=== PATIENT | male | born 1990 | race Caucasian/White ===

== ENCOUNTER 2018-03-27 08:04 | Emergency (ER) | payer OTHER ==
[2018-03-27 08:09] VITALS: BP 138/73
--- NOTE | 2018-03-27 08:35 | EDPHY ---
H & P Time Seen by Provider: 03/27/18 08:17 HPI/ROS: HPI Dog bite to left hand. 27-year-old male by private vehicle. This patient [place]. A dog had run away from its anatomical embalmer. The patient retrieve the dog and while caring the dog back to its anatomical embalmer of the dog bit him on the radial aspect of the left hand. The dog had tags. The dog was given back to the anatomical embalmer. The patient came to the emergency department for evaluation of the dog bite wound. The patient stead the that the dog was acting otherwise appropriate. No excessive drooling. The dog appear to be healthy. He did not have the opportunity to ask the anatomical embalmer about vaccination status. The patient is right- hand dominant. The patient reports that he has had a tetanus shot within the last 10 years. ROS: Constitutional: No fever, no chills. No weakness. Musculoskeletal: As above. Skin: No rashes. As above. Neurological: No focal weakness or altered sensation. Past medical history: Hypertension, appendectomy, broken right arm. Social history: Nonsmoker. No alcohol. Here by himself. Physical Exam: General Appearance: Alert, no distress. This patient is responding to questions appropriately and in full sentences. This patient appears well- hydrated and well-nourished. Eyes: Pupils equal and round no pallor or injection. No lid edema, erythema or injection. Left hand exam: Significant for 3 small, less than 2 mm, partial-thickness puncture wounds involving the radial aspect of the 2nd digit mid proximal phalanx and then just proximal to the 2nd MCP joint with another 1 being just proximal to that on the radial aspect of the hand. Neurological: Motor sensory function is grossly intact. Cranial nerves are normal. Gait is normal. Skin: Warm and dry, no rashes. Musculoskeletal: Neck is supple and nontender. Extremities are symmetrical. All joints range without pain or impingement. Psychiatric: No agitation. No depression. Database: EKG: Imaging: Procedures: Emergency department course: Triage vital signs reviewed and are unremarkable. The patient's wounds are fairly superficial, however he is very concerned about infection. He has no allergies to penicillin, he will be placed on Augmentin, 875 mg twice daily for 5 days. He was given his 1st dose in the emergency department. I feel that rabies prophylaxis is not required. This dog had tags, appeared otherwise healthy and had a responsible anatomical embalmer. The patient feels comfortable going home. I do not feel that x-rays are required. These wounds are superficial and retained foreign body is unlikely. The patient declines x-rays regardless. Follow-up and return to emergency department precautions reviewed with him. All of his questions were answered. He was discharged from the emergency department in good condition. Differential Diagnosis: The differential diagnosis on this patient includes but is not limited to dog bite wound to left hand. Retained foreign body, need for rabies prophylaxis, fracture, bony injury, significant neurovascular injury unlikely. This represents a partial list of diagnoses considered. These considerations are based on history, physical exam, past history, reassessment and diagnostic testing. Smoking Status: Never smoked Constitutional: Initial Vital Signs Temperature (C) 36.7 C 03/27/18 08:07 Heart Rate 60 03/27/18 08:07 Respiratory Rate 16 03/27/18 08:07 Blood Pressure 138/73 H 03/27/18 08:07 O2 Sat (%) 98 03/27/18 08:07 O2 Delivery Mode Room Air Allergies/Adverse Reactions: No Known Allergies Allergy (Unverified 03/27/18 08:07) Home Medications: Medication Instructions Recorded Amoxicillin/Clavulanate Pot 875 mg PO BID 5 Days tab 03/27/18 [Augmentin 875 mg tab] Departure - Departure Disposition: Home, Routine, Self-Care Clinical Impression: Dog bite of left hand Condition: Good Instructions: Animal Bite (ED) Additional Instructions: Read and follow provided instructions. Follow-up with your primary care physician in 2 days for re-evaluation and wound check. Take antibiotic as prescribed through entire course of treatment. Ibuprofen dosin mg every 6 hours with meals for the next 3 days only. Take only as needed for pain. Return to the emergency department for for redness or swelling involving your right hand, fever, drainage of pus from the wound areas or other serious concerns. Referrals: Marla Roy MD [Primary Care Provider] - As per Instructions Prescriptions: Amoxicillin/Clavulanate Pot [Augmentin 875 mg tab] 875 mg PO BID 5 Days tab
[2018-03-27] MEDS ORDERED: AMOXICILLIN/CLAVULANATE POT 875/125 MG TAB PO ONE (08:37)
== END 2018-03-27 08:59 | disposition home or self-care (01) ==
DX: S61.452A Open bite of left hand, initial encounter (principal); W54.0XXA Bitten by dog, initial encounter; Y92.838 Other recreation area as the place of occurrence of the external cause; I10 Essential (primary) hypertension